=== PATIENT | male | born 1950 | race African-American/Black ===

== ENCOUNTER 2020-11-24 09:51 | Emergency (ER) | payer MEDICARE, OTHER ==
[2020-11-24] MEDS ORDERED: diphenhydrAMINE 25 MG CAP ONE (10:28)
== END 2020-11-24 11:14 | disposition home or self-care (01) ==
LOC: NAV ERS 09:51
DX: R22.0 Localized swelling, mass and lump, head (principal); I10 Essential (primary) hypertension; G30.9 Alzheimer's disease, unspecified; J44.9 Chronic obstructive pulmonary disease, unspecified; N40.0 Benign prostatic hyperplasia without lower urinary tract symptoms; Z79.899 Other long term (current) drug therapy
CPT/HCPCS: 99283; Q0163